=== PATIENT | female | born 1965 | race Caucasian/White ===

== ENCOUNTER 2020-11-07 11:14 | Outpatient (REF) | payer OTHER, SELFPAY ==
[2020-11-07 12:32] LABS: COVID-19 Test Negative (Negative)
== END 2020-11-07 11:15 | disposition home or self-care (01) ==
LOC: HO.EMPCOV 11:14
PROVIDERS: Visit Provider Internal Medicine
DX: Z20.828 Contact with and (suspected) exposure to other viral communicable diseases (principal)
CPT/HCPCS: 36415; 87635; C9803

== ENCOUNTER 2020-12-20 09:52 | Outpatient (REF) | payer OTHER, SELFPAY ==
[2020-12-20 10:17] LABS: COVID-19 Test Negative (Negative); IDNOW Serial# 55D5AD1C
== END 2020-12-20 09:53 | disposition home or self-care (01) ==
LOC: HO.EMPCOV 09:52
PROVIDERS: Visit Provider Internal Medicine
DX: Z20.822 Contact with and (suspected) exposure to COVID-19 (principal)
CPT/HCPCS: 36415; 87635; C9803

== ENCOUNTER 2021-01-04 14:24 | Outpatient (REF) | payer OTHER, SELFPAY ==
--- NOTE | ~2021-01-04 | MM_ITS ---
EXAMINATION: MM SCREENING DIGITAL BREAST TOMOSYNTHESIS, BILATERAL CLINICAL INFORMATION: Screening. Asymptomatic. The lifetime risk of breast cancer based on the Tyrer-Cuzick Model is 8%. COMPARISON: Mammography: 12/23/2019, 12/22/2018, 11/11/2017, 08/27/2016 TECHNIQUE: Digital breast tomosynthesis is performed in both the craniocaudal and mediolateral oblique views along with computer-aided detection (CAD). Synthesized 2D images are generated from the tomosynthesis. FINDINGS: There are scattered areas of fibroglandular density (ACR BI-RADS breast composition Category b). There are scattered bilateral parenchymal asymmetries similar to prior exams. There is some shifting fibroglandular asymmetries from year to year. There is no developing density or interval mass or architectural abnormality. No abnormal calcifications. The axilla and skin contours are unremarkable. MM/MM tomosynthesis screening BI IMPRESSION: No significant changes from prior studies. ASSESSMENT: BI-RADS 2: Benign RECOMMENDATION: Routine annual mammography screening. This patient's information was entered into a reminder system with a target due date for their next mammogram.
== END 2021-01-04 14:25 | disposition home or self-care (01) ==
LOC: HO.MAMMO 14:24
PROVIDERS: PCP Internal Medicine; Visit Provider Internal Medicine
DX: Z12.31 Encounter for screening mammogram for malignant neoplasm of breast (principal)
CPT/HCPCS: 77063; 77067

== ENCOUNTER 2021-03-28 21:21 | Emergency (ER) | payer OTHER, SELFPAY ==
--- NOTE | ~2021-03-28 | US_ITS ---
EXAMINATION: US ABDOMEN LIMITED CLINICAL INFORMATION: Right upper quadrant pain.. COMPARISON: None TECHNIQUE: Real-time imaging of the right upper quadrant abdominal viscera. FINDINGS: PANCREAS: Normal. LIVER: Normal. The liver is normal in size. The liver contour is normal. Parenchymal echogenicity is normal. No focal hepatic lesion. There is no intrahepatic biliary duct dilatation seen. GALLBLADDER: Gallstones are present. The gallbladder wall is at the upper limit of normal for thickness. No wall edema or pericholecystic fluid. The patient does describe tenderness in the area of the gallbladder per the health care facility administrator. COMMON BILE DUCT: Normal in caliber measuring 0.4 cm in diameter. RIGHT KIDNEY: Normal. No hydronephrosis. No renal calculi or focal parenchymal lesions. The kidney measures 11.3 cm in maximum dimension. FREE FLUID: None. US/US abdomen limited IMPRESSION: Cholelithiasis. Sonographic Aguilar's sign. These findings raise concern for cholecystitis, although no inflammatory changes are seen at the gallbladder by ultrasound.
[2021-03-28 21:34] VITALS: BP 159/76; PULSE 74; RESP 16; TEMP 36.8; O2SAT 98; BMI 27.4
--- NOTE | 2021-03-28 23:14 | ED.ABDPAIN ---
HPI - Abdominal Pain General Chief Complaint: Abdominal Pain Stated Complaint: ABD PAIN, NAUSEA Time Seen by Provider: 03/28/21 22:53 Source: patient Mode of arrival: ambulatory Limitations: no limitations History of Present Illness HPI narrative: Patient comes emergency room complaining of epigastric and right upper quadrant pain. Patient states it started around noon time after lunch. Patient has never had this pain before. Patient states it is sharp in the epigastric area and in the right upper quadrant, radiating towards the back. The pain has been constant, very sharp. Patient had multiple episodes of vomiting, no diarrhea. Patient denies fever chills. MD elicited complaint: abdominal pain Related Data Previous Rx's Medication Instructions Recorded ondansetron HCl [Zofran] 4 mg PO Q6H PRN #10 tab 03/29/21 tramadol 50 mg PO TID PRN #7 tab 03/29/21 Allergies Allergy/AdvReac Type Severity Reaction Status Date / Time No Known Allergies Allergy Verified 03/28/21 21:34 Review of Systems Review of Systems Constitutional : No Weight loss, No Fever, No Chills, No Night Sweats, No Fatigue, No Malaise ENT/Mouth : No Hearing loss, No Ear Pain, No Nasal Congestion, No Sinus Pain, No Hoarseness, No sore throat, No Rhinorrhea, No Swallowing Difficulty Eyes: No Eye Pain, No Swelling, No Redness, No Foreign Body, No Discharge, No Vision Changes Cardiovascular : No Chest Pain, No SOB, No Dyspnea on Exertion, No Orthopnea, No Edema, No Palpitations Respiratory : No Cough, No Sputum, No Wheezing, No Smoke Exposure, No Dyspnea Gastrointestinal : Complaining of nausea vomiting No Diarrhea, No Constipation, complaining of epigastric and right upper quadrant pain,, No Hematochezia, No Melena Genitourinary : no irregular bleeding, No Dysuria, No Urinary Frequency, No Hematuria, No Urinary Incontinence, No Urgency, No Flank Pain, No Urinary Flow Changes, No Hesitancy Musculoskeletal : No joint pain, No Myalgias, No Joint Swelling Skin : No Skin Lesions, No rash Neuro : No Weakness, No Numbness, No Paresthesias, No Loss of Consciousness, No Dizziness, No Headache Psych : No Anxiety/Panic, No Depression, No SI/HI/AH/VH, No Social Issues, Heme/Lymph: No Bruising, No Bleeding,No Lymphadenopathy Endocrine : No Polyuria, No Polydipsia, No Temperature Intolerance Physical Exam Vital Signs: Vital Signs: Last Vital Signs Temp 98.2 F 03/29/21 02:29 Pulse 70 03/29/21 02:29 Resp 16 03/29/21 02:29 BP 132/62 03/29/21 02:29 Pulse Ox 98 03/29/21 02:29 Body Mass Index 27.4 Appearance: Alert. Oriented X3. No acute distress. Eyes: Pupils equal, round and reactive to light. ENT: Pharynx normal. Neck: Normal inspection. Neck supple. No lymph nodes noted. No crepitus CVS: Normal heart rate and rhythm. Pulses normal. Normal S1 and S2 Respiratory: No respiratory distress. Breath sounds normal. No Wheezing. No rales Abdomen: Soft, pain to palpation in epigastric area and right upper quadrant, positive Aguilar sign, No rigidity. No distention. Skin: Skin warm and dry. Normal skin color. Normal skin turgor. Extremities: No lower extremity edema. No lower extremity edema. No Lacerations. No Rash Neuro: Oriented X 3. No motor deficit. No sensory deficit. Moving all extermities. No slurred speech. Course Course Course Narrative: At this time, patient has no abdominal pain. The ultrasound shows cholelithiasis, with possible cholecystitis. However, at this time patient has no abdominal pain, LFTs are within normal limits. Patient is asymptomatic. Patient instructed to follow-up with surgery. Patient has not had any episodes of vomiting. On physical exam prior to discharge, patient has no abdominal pain MDM - Abdominal Pain Lab Data Result diagrams: 03/28/21 23:32 03/28/21 23:32 Labs: Lab Results 03/28/21 03/28/21 03/28/21 Range/Units 23:32 23:32 23:32 WBC 7.8 (4.8-10.8) X10*3/uL RBC 4.35 (4.20-5.50) X10*6/uL Hgb 12.6 (12.0-16.0) g/dl Hct 38.3 (37-47) % MCV 88.0 (80-98) fL MCH 29.0 (27.0-33.0) pg MCHC 32.9 (31.0-35.0) g/dl RDW 12.6 (11.0-16.0) % Plt Count 248 (160-400) X10*3/uL MPV 9.8 (9.4-12.3) fL Immature Gran % (Auto) 0.1 (0.0-0.4) % Neut % (Auto) 81.2 H (45-73) % Lymph % (Auto) 12.8 L (20-40) % Mccracken % (Auto) 5.4 (2-11) % Eos % (Auto) 0.1 (0-4) % Baso % (Auto) 0.4 (0-2) % Lymph # (Auto) 1.0 L (1.2-4.9) X10*3/uL Mccracken # (Auto) 0.4 (0.1-1.2) X10*3/uL Eos # (Auto) 0.0 (0.0-0.4) X10*3/uL Baso # (Auto) 0.0 (0.0-0.2) X10*3/uL Abs Immat Gran (auto) 0.01 (0.00-0.03) X10*3/uL Absolute Neuts (auto) 6.4 (2.0-8.3) X10*3/uL Absolute Nucleated RBC 0.000 (0.0-0.012) X10*3/uL Nucleated RBC % (auto) 0.0 (0.0-0.2) /100WBC Sodium 139 (135-145) mmol/L Potassium 3.9 (3.3-5.1) mmol/L Chloride 103 (96-108) mmol/L Carbon Dioxide 26 (22-29) mmol/L Anion Gap 14 (12-20) BUN 13 (9-16) mg/dL Creatinine 0.80 (0.5-1.4) mg/dL Estim Creat Clear Calc 75.7 Estimated GFR > 60 Random Glucose 123 H (60-115) mg/dL Calcium 9.6 (8.4-10.2) mg/dL Total Bilirubin 0.6 (0.0-1.0) mg/dL Direct Bilirubin 0.2 (0.0-0.5) mg/dL AST 20 (5-31) U/L ALT 17 (0-31) U/L Alkaline Phosphatase 77 (39-117) U/L Total Protein 7.6 (6.5-8.0) g/dL Albumin 4.7 (3.5-5.0) g/dL Lipase 39 (8-78) U/L Imaging Data US - abdomen: Radiologist's impression: FINDINGS: PANCREAS: Normal. LIVER: Normal. The liver is normal in size. The liver contour is normal. Parenchymal echogenicity is normal. No focal hepatic lesion. There is no intrahepatic biliary duct dilatation seen. GALLBLADDER: Gallstones are present. The gallbladder wall is at the upper limit of normal for thickness. No wall edema or pericholecystic fluid. The patient does describe tenderness in the area of the gallbladder per the solder making supervisor. COMMON BILE DUCT: Normal in caliber measuring 0.4 cm in diameter. RIGHT KIDNEY: Normal. No hydronephrosis. No renal calculi or focal parenchymal lesions. The kidney measures 11.3 cm in maximum dimension. FREE FLUID: None. US/US abdomen limited IMPRESSION: Cholelithiasis. Sonographic Aguilar's sign. These findings raise concern for cholecystitis, although no inflammatory changes are seen at the gallbladder by ultrasound. Discharge Plan Discharge Clinical Impression: Cholelithiasis Patient Disposition: Home, Self-Care Instructions: Gallstones (ED) Additional Instructions: Please follow-up with your primary care physician tomorrow. If you have any worsening or new symptoms, please return to the emergency room or call 911 Prescriptions: New tramadol 50 mg tablet 50 mg PO TID PRN (Reason: pain) Qty: 7 RF: 0 ondansetron HCl [Zofran] 4 mg tablet 4 mg PO Q6H PRN (Reason: nausea and vomiting) Qty: 10 RF: 0 Referrals: Ricardo Darden MD [Physician] - 2 days [facility] [place] Past Medical History Medical History Anxiety Social History Social History Alcohol intake: never Patient Tobacco Use Status: Tobacco use Unknown Use of substances other than those prescribed or required for medical reasons: No Advance Directives: No Advance Directives Information Provided: No
--- NOTE | 2021-03-28 23:15 | ECG_ITS ---
Test Reason : ABD PAIN Blood Pressure : / mmHG Vent. Rate : 074 BPM Atrial Rate : 074 BPM P-R Int : 152 ms QRS Dur : 082 ms QT Int : 362 ms P-R-T Axes : 067 024 021 degrees QTc Int : 401 ms Normal sinus rhythm with sinus arrhythmia Possible Left atrial enlargement Nonspecific ST abnormality Abnormal ECG No previous ECGs available Referred By: Martha Robbins Electronically Signed By:ROEL RUBY
[2021-03-28 23:38] LABS: Basophils Percent Auto 0.4 % (0-2); Eosinophils Percent Auto 0.1 % (0-4); Hematocrit 38.3 % (37-47); Hemoglobin 12.6 g/dl (12.0-16.0); Imm Gran Abs Auto 0.01 X10*3/uL (0.00-0.03); Imm Gran Pct Auto 0.1 % (0.0-0.4); Lymphocytes Percent Auto 12.8 % (20-40); MANUAL DIFF FLAG NO; Mean Corpuscular HGB Conc 32.9 g/dl (31.0-35.0); Mean Platelet Volume 9.8 fL (9.4-12.3); Monocytes Absolute Auto 0.4 X10*3/uL (0.1-1.2); Monocytes Percent Auto 5.4 % (2-11); Neutrophils Absolute Auto 6.4 X10*3/uL (2.0-8.3); Neutrophils Percent Auto 81.2 % (45-73); Platelet Count 248 X10*3/uL (160-400); Red Blood Count 4.35 X10*6/uL (4.20-5.50); Red Cell Distribution Width 12.6 % (11.0-16.0); White Blood Count 7.8 X10*3/uL (4.8-10.8)
[2021-03-28] MEDS: 0.9 % Sodium Chloride 1,000 ML 999 ML IVCONT (23:41)
[2021-03-28] MEDS: ondansetron HCL 4 MG/2 ML VIAL IVPUSH (23:42)
[2021-03-28] MEDS: Morphine Sulfate 4 MG/ML CARTRIDGE IVPUSH (23:42)
[2021-03-28 23:45] VITALS: BP 144/69; PULSE 68; RESP 16; O2SAT 97
[2021-03-29 00:05] LABS: Anion Gap 14 (12-20); Blood Urea Nitrogen 13 mg/dL (9-16); Calcium 9.6 mg/dL (8.4-10.2); Carbon Dioxide 26 mmol/L (22-29); Chloride 103 mmol/L (96-108); Creatinine Clr Calc Pharmacy 75.7; Estimated Glomerular Filt Rate > 60; Glucose Random 123 mg/dL (60-115); Potassium 3.9 mmol/L (3.3-5.1); Sodium 139 mmol/L (135-145)
[2021-03-29 00:08] LABS: Alanine Aminotransferase 17 U/L (0-31); Albumin Level 4.7 g/dL (3.5-5.0); Alkaline Phosphatase 77 U/L (39-117); Aspartate Amino Transferase 20 U/L (5-31); Bilirubin Direct 0.2 mg/dL (0.0-0.5); Bilirubin Total 0.6 mg/dL (0.0-1.0); Lipase 39 U/L (8-78); Total Protein 7.6 g/dL (6.5-8.0)
[2021-03-29 02:29] VITALS: BP 132/62; PULSE 70; RESP 16; TEMP 36.8; O2SAT 98
== END 2021-03-29 03:45 | disposition home or self-care (01) ==
PROVIDERS: Emergency Provider Emergency Medicine; PCP Internal Medicine
DX: K80.20 Calculus of gallbladder without cholecystitis without obstruction (principal); R10.13 Epigastric pain; R10.11 Right upper quadrant pain; Z79.899 Other long term (current) drug therapy
CPT/HCPCS: 36415; 76705; 80048; 80076; 83690; 85025; 93005; 96365; 96375; 99284; J2270; J2405

== ENCOUNTER → 2021-04-04 13:36 | Outpatient (BNVA) | payer OTHER, SELFPAY | PROVIDERS: PCP Internal Medicine; Referring Provider Internal Medicine; Visit Provider Surgery ==

== ENCOUNTER 2021-06-24 06:08 | Day surgery (SDC) | payer OTHER, SELFPAY ==
--- NOTE | 2021-06-21 09:09 | HO.ANESPROP2 ---
Documented by User: Jessi Tinoco NP 06/21/21 09:10 HPI - Anesthesia Eval Consult details Narrative: 56yo F for Cholecystectomy Laparoscopic, Poss open PMFSH Active Problems Active Problems: All Active Problems (Updated 06/17/21 @ 11:19 by Sia Rodrigues RN) Symptomatic cholelithiasis (Acute) Past Medical History Medical History Acid reflux Anxiety Depression Surgical History Surgical History History of endometrial ablation History of esophagogastroduodenoscopy Hx of colonoscopy Hx of dilation and curettage Social History Social History Alcohol intake: never Patient Tobacco Use Status: Never used Tobacco Use of substances other than those prescribed or required for medical reasons: No Have you been hit, kicked, punched, or otherwise hurt by someone within the past year? If so, by whom?: No Are you DNR?: No Advance Directives: No Advance Directives Information Provided: No Meds Allergies Allergy/AdvReac Type Severity Reaction Status Date / Time No Known Allergies Allergy Verified 06/24/21 06:20 Home Medications Medication Instructions Recorded Confirmed Last Taken Type buspirone 7.5 mg tablet 1 tab PO BEDTIME 06/17/21 06/24/21 06/24/21 History mirtazapine 15 mg tablet 1 tab PO BEDTIME 06/17/21 06/17/21 Unknown History Exam Exam Date and Time: June 21, 2021 0909 Pertinent Lab Results Pertinent Lab Results: Laboratory Tests 03/28/21 03/28/21 23:32 23:32 WBC 7.8 Hgb 12.6 Hct 38.3 Plt Count 248 Sodium 139 Potassium 3.9 Chloride 103 Carbon Dioxide 26 BUN 13 Creatinine 0.80 Narrative Narrative: EKG 03/2021 Vent. Rate : 074 BPM ? ? Atrial Rate : 074 BPM ?? P-R Int : 152 ms? QRS Dur : 082 ms ? ? QT Int : 362 ms ? ? ? P-R-T Axes : 067 024 021 degrees ?? QTc Int : 401 ms ? Normal sinus rhythm with sinus arrhythmia Possible Left atrial enlargement Nonspecific ST abnormality Abnormal ECG No previous ECGs available ? Assessment and Plan Assessment Anesthesia Assessment: Chart Reviewed Documented by User: Tanika Concepcion MD 06/24/21 08:08 [facility] Past Medical History Medical History Acid reflux Anxiety Depression Family History Family history of problems with anesthesia: No Surgical History Surgical History History of endometrial ablation History of esophagogastroduodenoscopy Hx of colonoscopy Hx of dilation and curettage History of Problems with Anesthesia: No Social History Social History Alcohol intake: never Patient Tobacco Use Status: Never used Tobacco Use of substances other than those prescribed or required for medical reasons: No Have you been hit, kicked, punched, or otherwise hurt by someone within the past year? If so, by whom?: No Are you DNR?: No Advance Directives: No Advance Directives Information Provided: No Meds Allergies Allergy/AdvReac Type Severity Reaction Status Date / Time No Known Allergies Allergy Verified 06/24/21 06:20 Home Medications Medication Instructions Recorded Confirmed Last Taken Type buspirone 7.5 mg tablet 1 tab PO BEDTIME 06/17/21 06/24/21 06/24/21 History mirtazapine 15 mg tablet 1 tab PO BEDTIME 06/17/21 06/17/21 Unknown History Exam Height,Weight and Vital Signs: Height 5 ft 4 in Weight 72.575 kg Vital Signs Temp Pulse Resp BP Pulse Ox 06/24/21 06:15 97.9 F 75 18 137/68 100 Airway Mallampati Class: III TM Dist: >3cm Neck ROM: Full Heart: RRR Lungs: CTAB Assessment and Plan Assessment Anesthesia Assessment: Anesthesia Plan Discussed Final Anesthetic Review Family History of Problems with Anesthesia: No History of Problems with Anesthesia: No NPO: Yes ASA Class: II Final Preanesthetic Review: No Changes in Pt Med Stat, Meds/Allgs Chart Reviewed, Consent Obtained/Reviewed and Anes Risks/Benef Reviewed Patient Risk: Low Procedure Risk: Low Assessment/Block/Sedation in SS: Assess/Block/Sedation-SS Anesthetic Plan Anesthetic Plan: GA Disposition: Standard PACU
[2021-06-24] VITALS (12 sets, daily range): BP systolic 127–162; BP diastolic 61–83; PULSE 56–79; RESP 16–18; TEMP 36.4–36.6; O2SAT 95–100; BMI 27.4
[2021-06-24] MEDS: Lactated Ringers 1,000 ML 100 ML IVCONT (06:39)
--- NOTE | 2021-06-24 08:32 | W.PM.OPN ---
Operative Note Operative Note Date of Service: 06/24/21 Narrative: Preoperative diagnosis: Symptomatic cholelithiasis Postoperative diagnosis: Same Procedure: Laparoscopic cholecystectomy Surgeon: Ricardo Darden MD Director Software Quality Assurance: ADALBERTO James Anesthesia: General endotracheal Indications for procedure:56 year old female with several episodes of abdominal pain in the right upper quadrant found to have gallstones in the gallbladder suggestive of symptomatic cholelithiasis. Operative findings: chronic changes consistent with chronic cholecystitis Specimen:gallbladder Estimated blood loss:2 mls Complications: none Procedure details: Patient was brought to the OR and placed in a supine position. After administering general anesthesia the patient's abdomen was prepped with ChloraPrep and draped in a sterile fashion. Local anesthesia consisting of 0.25% Sensorcaine with epinephrine was infiltrated in a periumbilical region. A 5 mm incision was made above the umbilicus in a transverse fashion. The Veress needle was then inserted while elevating abdominal cavity with towel clips. After positive drop test the abdomen was insufflated to a pressure of 15 mm of mercury. The Veress needle was then removed and a 5 mm trocar inserted. The camera was inserted in the abdomen explored. A 12 mm trocar was then placed in the epigastrium and two 5 mm trocars placed in the right upper quadrant. The patient was placed in reverse Trendelenburg positioning and rotated to the left. The gallbladder was grasped with the fundus and retracted cephalad. The infundibulum was then grasped and retracted away from the liver bed. The Dolphin dissected was then used to dissect the peritoneum off the infundibulum to reveal the junction with the cystic duct. Cystic artery was noted slightly medial and posterior to the cystic duct. After obtaining a critical view the cystic duct was doubly clipped and divided. The cystic artery was then doubly clipped and divided. The gallbladder was then dissected off the liver bed using electrocautery with an L hook. Hemostasis was assured all times using the electrocautery. When the gallbladder is completely dissected off the liver bed was placed in an Endo-Catch bag and brought out through the epigastric incision. The gallbladder was sent to pathology for further examination. The abdomen was then re-examined. The liver bed was irrigated and suctioned dry. No bleeding or bile leak could be identified. CO2 was then evacuated and all trocars removed. Fascia was closed at the epigastric incision using a [id number] 0 Polysorb suture. Skin was closed in all incisions using a subcuticular 4 0 Polysorb suture. Sterile dressings consisting of Steri-Strips, 2 x 2 gauze, and Tegaderm were then applied. The patient tolerated the procedure well. Sponge instrument and needle counts reported as correct. The patient was transferred to PACU in stable condition.
--- NOTE | 2021-06-24 08:36 | MHC.SHP ---
Pre-Procedural Eval Section A Date of Service: 06/24/21 The patient is an INPATIENT: No Changes since office visit: Yes Patient answered all questions; No Cold of Flu in the past 2 weeks, No New Medical Problems and No Changes in Medication The History & Physical has been completed within 30 days and I have reviewed it.: Yes Section B Chief Complaint: calculus of gallbladder Allergies: Allergies Allergy/AdvReac Type Severity Reaction Status Date / Time No Known Allergies Allergy Verified 06/24/21 06:20 Plan Diagnosis/Plan: Unchanged I have reviewed the history and physical and performed a pertinent physical examination on my patient. No changes have occurred unless specified.
[2021-06-24] MEDS: oxyCODONE HCl Immed Release 5 MG TABLET PO (09:09)
[2021-06-24] MEDS: Ketorolac Tromethamine 15 MG/ML VIAL IVPUSH (09:09)
[2021-06-24] MEDS: fentaNYL citrate/PF 100 MCG/2 ML VIAL 50 MCG IVPUSH (09:10)
== END 2021-06-24 11:04 | disposition home or self-care (01) ==
PROVIDERS: PCP Internal Medicine; Visit Provider Surgery
PROC: 0FT44ZZ Resection of Gallbladder, Percutaneous Endoscopic Approach (ICD-10-PCS; CPT 47562; principal; 2021-06-24 07:30)
DX: K80.10 Calculus of gallbladder with chronic cholecystitis without obstruction (principal); K21.9 Gastro-esophageal reflux disease without esophagitis; F32.9 Major depressive disorder, single episode, unspecified; Z79.899 Other long term (current) drug therapy
CPT/HCPCS: 47562; 88304; J0131; J1100; J1885; J2250; J2405; J3010

== ENCOUNTER → 2021-07-02 13:47 | Outpatient (BNVA) | payer OTHER, SELFPAY | PROVIDERS: PCP Internal Medicine; Referring Provider Internal Medicine; Visit Provider Surgery ==

== ENCOUNTER 2021-10-11 05:58 | Outpatient (REF) | payer OTHER, SELFPAY ==
[2021-10-11 06:04] LABS: MANUAL DIFF FLAG NO
[2021-10-11 08:33] LABS: Basophils Percent Auto 0.7 % (0-2); Eosinophils Absolute Auto 0.1 X10*3/uL (0.0-0.4); Eosinophils Percent Auto 2.7 % (0-4); Hematocrit 40.9 % (37.0-47.0); Hemoglobin 13.3 g/dl (12.0-16.0); Imm Gran Abs Auto 0.01 X10*3/uL (0.00-0.03); Imm Gran Pct Auto 0.2 % (0.0-0.4); Lymphocytes Absolute Auto 1.8 X10*3/uL (1.2-4.9); Lymphocytes Percent Auto 40.5 % (20-40); Mean Corpuscular HGB Conc 32.5 g/dl (31.0-35.0); Mean Corpuscular Volume 89.3 fL (80.0-98.0); Mean Platelet Volume 10.8 fL (9.4-12.3); Monocytes Absolute Auto 0.5 X10*3/uL (0.1-1.2); Monocytes Percent Auto 10.6 % (2-11); Neutrophils Percent Auto 45.3 % (45-73); Platelet Count 318 X10*3/uL (160-400); Red Blood Count 4.58 X10*6/uL (4.20-5.50); Red Cell Distribution Width 12.7 % (11.0-16.0); White Blood Count 4.4 X10*3/uL (4.8-10.8)
[2021-10-11 09:16] LABS: Alanine Aminotransferase 14 U/L (0-31); Albumin Level 4.4 g/dL (3.5-5.0); Alkaline Phosphatase 77 U/L (39-117); Anion Gap 13 (12-20); Aspartate Amino Transferase 17 U/L (5-31); Bilirubin Total 0.6 mg/dL (0.0-1.0); Blood Urea Nitrogen 19 mg/dL (9-16); Calcium 9.8 mg/dL (8.4-10.2); Carbon Dioxide 28 mmol/L (22-29); Chloride 107 mmol/L (96-108); Cholesterol 198 mg/dL; Estimated Glomerular Filt Rate 60; Glucose Random 87 mg/dL (60-115); HDL Cholesterol 50 mg/dL; LDL Cholesterol Calculated 132 mg/dl; Sodium 143 mmol/L (135-145); Total Protein 7.4 g/dL (6.5-8.0); Triglycerides 82 mg/dL
[2021-10-11 09:22] LABS: Free T4 (Free Thyroxine) 0.81 ng/dL (0.71-1.85); Thyroid Stimulating Hormone 2.54 uIU/mL (0.32-4.0); Vitamin D 25-OH Total 38.1 ng/mL (>30)
== END 2021-10-11 05:59 | disposition home or self-care (01) ==
LOC: HO.LAB 05:58
PROVIDERS: PCP Internal Medicine; Visit Provider Internal Medicine
DX: M19.041 Primary osteoarthritis, right hand (principal); M19.042 Primary osteoarthritis, left hand; E78.00 Pure hypercholesterolemia, unspecified; R53.83 Other fatigue; R53.81 Other malaise; E55.9 Vitamin D deficiency, unspecified
CPT/HCPCS: 36415; 80053; 80061; 82306; 84439; 84443; 85025

== ENCOUNTER 2022-07-01 14:23 | Outpatient (REF) | payer OTHER, SELFPAY ==
--- NOTE | ~2022-07-01 | MM_ITS ---
EXAMINATION: MM SCREENING DIGITAL BREAST TOMOSYNTHESIS, BILATERAL CLINICAL INFORMATION: Screening. Asymptomatic. The lifetime risk of breast cancer based on the Tyrer-Cuzick Model is 6.0%. COMPARISON: Mammography: January 04, 2021 and studies dating back to May 15, 2014 TECHNIQUE: Digital breast tomosynthesis is performed in both the craniocaudal and mediolateral oblique views along with computer-aided detection (CAD). Synthesized 2D images are generated from the tomosynthesis. FINDINGS: The breasts are heterogeneously dense, which may obscure small masses (ACR BI-RADS breast composition Category c). There are no significant masses, abnormal calcifications, or other abnormalities. MM/MM tomosynthesis screening BI IMPRESSION: No significant changes from prior exam. ASSESSMENT: BI-RADS 1: Negative RECOMMENDATION: Routine annual mammography screening. This patient's information was entered into a reminder system with a target due date for their next mammogram.
== END 2022-07-01 14:24 | disposition home or self-care (01) ==
LOC: HO.MAMMO 14:23
PROVIDERS: Visit Provider Internal Medicine
DX: Z12.31 Encounter for screening mammogram for malignant neoplasm of breast (principal)
CPT/HCPCS: 77063; 77067

== ENCOUNTER 2022-10-10 05:58 | Outpatient (REF) | payer OTHER, SELFPAY ==
[2022-10-10 06:02] LABS: MANUAL DIFF FLAG NO
[2022-10-10 07:25] LABS: Basophils Percent Auto 0.8 % (0-2); Eosinophils Absolute Auto 0.2 X10*3/uL (0.0-0.4); Eosinophils Percent Auto 3.1 % (0-4); Hematocrit 41.8 % (37.0-47.0); Hemoglobin 13.4 g/dl (12.0-16.0); Imm Gran Abs Auto 0.01 X10*3/uL (0.00-0.03); Imm Gran Pct Auto 0.2 % (0.0-0.4); Lymphocytes Percent Auto 41.6 % (20-40); Mean Corpuscular HGB Conc 32.1 g/dl (31.0-35.0); Mean Corpuscular Hemoglobin 28.7 pg (27.0-33.0); Mean Corpuscular Volume 89.5 fL (80.0-98.0); Mean Platelet Volume 10.6 fL (9.4-12.3); Monocytes Absolute Auto 0.6 X10*3/uL (0.1-1.2); Monocytes Percent Auto 11.8 % (2-11); Neutrophils Absolute Auto 2.1 x10*3/uL (2.0-8.3); Neutrophils Percent Auto 42.5 % (45-73); Platelet Count 280 X10*3/uL (160-400); Red Blood Count 4.67 X10*6/uL (4.20-5.50); Red Cell Distribution Width 12.9 % (11.0-16.0); White Blood Count 4.9 X10*3/uL (4.8-10.8)
[2022-10-10 08:22] LABS: Alanine Aminotransferase 12 U/L (0-31); Albumin Level 4.6 g/dL (3.5-5.0); Alkaline Phosphatase 73 U/L (39-117); Anion Gap 12 (12-20); Aspartate Amino Transferase 17 U/L (5-31); Bilirubin Total 1.2 mg/dL (0.0-1.0); Blood Urea Nitrogen 18 mg/dL (9-16); Calcium 9.7 mg/dL (8.4-10.2); Carbon Dioxide 28 mmol/L (22-29); Chloride 106 mmol/L (96-108); Cholesterol 211 mg/dL; Estimated Glomerular Filt Rate > 60; Glucose Random 85 mg/dL (60-115); HDL Cholesterol 48 mg/dL; LDL Cholesterol Calculated 142 mg/dl; Potassium 4.5 mmol/L (3.3-5.1); Sodium 141 mmol/L (135-145); Thyroid Stimulating Hormone 4.67 uIU/mL (0.32-4.0); Total Protein 7.3 g/dL (6.5-8.0); Triglycerides 109 mg/dL
== END 2022-10-10 05:59 | disposition home or self-care (01) ==
LOC: HO.LAB 05:58
PROVIDERS: Visit Provider Internal Medicine
DX: F41.9 Anxiety disorder, unspecified (principal); E78.00 Pure hypercholesterolemia, unspecified
CPT/HCPCS: 36415; 80053; 80061; 84443; 85025

== ENCOUNTER 2022-11-04 14:24 | Outpatient (REF) | payer OTHER, SELFPAY | END 2022-11-04 14:25 | disposition home or self-care (01) | LOC: HO.LNP 14:24 | PROVIDERS: PCP Internal Medicine; Visit Provider Surgery | DX: L98.9 Disorder of the skin and subcutaneous tissue, unspecified (principal); L91.8 Other hypertrophic disorders of the skin | CPT/HCPCS: 11400; 11401; 88304; 88305 ==

== ENCOUNTER → 2022-11-13 14:22 | Outpatient (BNVA) | payer OTHER, SELFPAY | PROVIDERS: PCP Internal Medicine; Visit Provider Surgery | DX: Z13.89 Encounter for screening for other disorder (principal) ==

== ENCOUNTER 2023-01-13 14:34 | Outpatient (REF) | payer OTHER, SELFPAY | END 2023-01-13 14:35 | disposition home or self-care (01) | LOC: HO.LNP 14:34 | PROVIDERS: PCP Internal Medicine; Visit Provider Obstetrics & Gynecology | DX: Z01.419 Encounter for gynecological examination (general) (routine) without abnormal findings (principal) | CPT/HCPCS: 88142 ==

== ENCOUNTER 2023-07-07 14:11 | Outpatient (REF) | payer OTHER, SELFPAY ==
--- NOTE | ~2023-07-07 | MM_ITS ---
EXAMINATION: MM SCREENING DIGITAL BREAST TOMOSYNTHESIS, BILATERAL CLINICAL INFORMATION: Screening. Asymptomatic. COMPARISON: Mammography: 07/01/2022, 12/23/2019, 12/22/2018, 11/11/2017, 08/27/2016 TECHNIQUE: Digital breast tomosynthesis is performed in both the craniocaudal and mediolateral oblique views along with computer-aided detection (CAD). Synthesized 2D images are generated from the tomosynthesis. FINDINGS: The breasts are heterogeneously dense, which may obscure small masses (ACR BI-RADS breast composition Category c). There are no suspicious masses, suspicious grouped calcifications, or areas of architectural distortion. The parenchymal pattern is again noted to be somewhat complex although stable from prior exams, with numerous stable asymmetries. There are no skin changes. MM/MM tomosynthesis screening BI IMPRESSION: No mammographic evidence of malignancy. ASSESSMENT: BI-RADS BI-RADS 1 - Negative RECOMMENDATION: Routine annual mammography screening. 1 year F/U This examination should not preclude the clinical evaluation of a suspicious palpable abnormality. This patient's information was entered into a reminder system with a target due date for their next mammogram.
== END 2023-07-07 14:12 | disposition home or self-care (01) ==
LOC: HO.MAMMO 14:11
PROVIDERS: PCP Internal Medicine; Visit Provider Internal Medicine
DX: Z12.31 Encounter for screening mammogram for malignant neoplasm of breast (principal)
CPT/HCPCS: 77063; 77067

== ENCOUNTER → 2023-07-07 14:30 | Outpatient (BNV) | payer OTHER, SELFPAY | PROVIDERS: PCP Internal Medicine; Visit Provider Radiology Diagnostic Radiology | DX: Z12.31 Encounter for screening mammogram for malignant neoplasm of breast (principal) | CPT/HCPCS: 77063; 77067 ==

== ENCOUNTER 2023-08-01 07:42 | Outpatient (REF) | payer OTHER, SELFPAY ==
[2023-08-01 08:00] LABS: MANUAL DIFF FLAG NO
[2023-08-01 08:13] LABS: Basophils Percent Auto 0.7 % (0-2); Eosinophils Absolute Auto 0.2 X10*3/uL (0.0-0.4); Eosinophils Percent Auto 3.7 % (0-4); Hematocrit 40.2 % (37.0-47.0); Hemoglobin 13.5 g/dl (12.0-16.0); Imm Gran Abs Auto 0.01 X10*3/uL (0.00-0.03); Imm Gran Pct Auto 0.2 % (0.0-0.4); Lymphocytes Absolute Auto 1.9 X10*3/uL (1.2-4.9); Mean Corpuscular HGB Conc 33.6 g/dl (31.0-35.0); Mean Corpuscular Hemoglobin 29.3 pg (27.0-33.0); Mean Corpuscular Volume 87.2 fL (80.0-98.0); Mean Platelet Volume 9.7 fL (9.4-12.3); Monocytes Absolute Auto 0.5 X10*3/uL (0.1-1.2); Neutrophils Absolute Auto 1.8 x10*3/uL (2.0-8.3); Neutrophils Percent Auto 41.4 % (45-73); Platelet Count 238 X10*3/uL (160-400); Red Blood Count 4.61 X10*6/uL (4.20-5.50); Red Cell Distribution Width 12.7 % (11.0-16.0); White Blood Count 4.4 X10*3/uL (4.8-10.8)
[2023-08-01 09:06] LABS: Alanine Aminotransferase 15 U/L (0-31); Albumin Level 4.4 g/dL (3.5-5.0); Alkaline Phosphatase 66 U/L (39-117); Anion Gap 16 (12-20); Aspartate Amino Transferase 20 U/L (5-31); Bilirubin Total 1.2 mg/dL (0.0-1.0); Blood Urea Nitrogen 15 mg/dL (9-16); Calcium 9.8 mg/dL (8.4-10.2); Carbon Dioxide 24 mmol/L (22-29); Chloride 108 mmol/L (96-108); Cholesterol 197 mg/dL (<200); Estimated Glomerular Filt Rate > 60; Glucose Random 89 mg/dL (60-115); HDL Cholesterol 50 mg/dL (>40); LDL Cholesterol Calculated 130 mg/dL (<100); Potassium 4.2 mmol/L (3.3-5.1); Sodium 144 mmol/L (135-145); Total Protein 7.2 g/dL (6.5-8.0); Triglycerides 88 mg/dL (<150)
[2023-08-01 09:29] LABS: Free T4 (Free Thyroxine) 0.78 ng/dL (0.71-1.85); Thyroid Stimulating Hormone 2.54 uIU/mL (0.32-4.0)
== END 2023-08-01 07:43 | disposition home or self-care (01) ==
LOC: HO.LAB 07:42
PROVIDERS: Visit Provider Internal Medicine
DX: Z01.84 Encounter for antibody response examination (principal); E03.9 Hypothyroidism, unspecified; E78.00 Pure hypercholesterolemia, unspecified
CPT/HCPCS: 36415; 80053; 80061; 84439; 84443; 85025; 86787

== ENCOUNTER 2024-02-01 15:01 | Outpatient (REF) | payer OTHER, SELFPAY ==
[2024-02-09 04:18] LABS: HPV mRNA E6/E7 rflx Not Detected (Not Detected)
== END 2024-02-01 15:02 | disposition home or self-care (01) ==
LOC: HO.LNP 15:01
PROVIDERS: Visit Provider Obstetrics & Gynecology
DX: Z01.419 Encounter for gynecological examination (general) (routine) without abnormal findings (principal); Z11.51 Encounter for screening for human papillomavirus (HPV)
CPT/HCPCS: 87624; 88142

== ENCOUNTER 2024-02-01 15:01 | Outpatient (AMB) | payer OTHER, SELFPAY ==
[2024-02-01 15:30] VITALS: BP 110/62; BMI 27.5
--- NOTE | 2024-02-01 15:30 | A.OFFVIS_ITS ---
Intake Vital Signs 02/01/24 15:30 Height 5 ft 4 in Weight 160 lb BMI 27.5 BP 110/62 Intake Visit Reasons: Annual Allergies No Known Allergies Allergy (Verified 01/13/23 14:44) Post menopausal: Yes HPI HPI Comments History of Present Illness Details Presenting for annual exam. No complaints. Last Pap was negative in 01/22, no HPV done Last Mammogram was BI-RADS 1 in 07/25 Last Colonoscopy was in 10/20, the recommendation was to repeat in 5 years [facility] Medical History Acid reflux Depression Anxiety Surgical History History of cholecystectomy History of local excision of skin lesion (11/04/22) History of esophagogastroduodenoscopy History of endometrial ablation Hx of dilation and curettage Hx of colonoscopy Social History Household Members: Spouse Housing: House Alcohol intake: never Patient Tobacco Use Status: Never used Tobacco Current occupational status: employed Current occupation: Food services at [employer] Sexually active: Yes Sexual orientation: Straight/Heterosexual Gender identity: Female Female Reproductive History Menstrual Age of Menarche: 13 Total pregnancies: 3 Full term: 2 Number of Living Children: 2 Date of last pap smear: 01/13/23 Date of Mammogram: 07/07/23 Review of Systems Const All systems reviewed & are unremarkable except as noted in HPI and below Card Reports as per HPI Resp Reports as per HPI GI Reports as per HPI and Reports no additional complaints Reports as per HPI Physical Exam Vital Signs: Last Vital Signs BP 110/62 02/01/24 15:30 BMI result Body Mass Index 27.5 Const General: cooperative, healthy appearing and comfortable Chest Chest palpation & inspection: normal inspection of the chest and normal palpation of entire chest wall Breast/axilla inspection: normal inspection of the breasts and normal inspection of the axillae Breast/axilla palpation: normal palpation of the breasts, normal palpation of the axillae and no axillary lymphadenopathy Resp Effort & Inspection: normal respiratory effort Auscultation: clear to auscultation bilaterally Percussion: percussion normal Cardio Palpation: normal PMI Rate: regular rate Rhythm: regular rhythm Heart sounds: no murmurs and no rubs Peripheral pulses: Peripheral pulses 2+ throughout GI Inspection: Yes normal to inspection Palpation (GI): Soft to palpation, nontender, no guarding, not rigid and No hepatosplenomegaly present Percussion: Yes normal to percussion Auscultation: normal bowel sounds Rectal Exam - Female: deferred General: Yes bladder normal to palpation External Female Exam: No lesion Speculum Exam - Vagina: normal appearance of the vagina, normal palpation, normal vaginal discharge and not erythematous Speculum Exam - Cervix: normal appearance of the cervix and normal palpation Bimanual exam- vagina & uterus: normal bimanual exam, normal palpation, uterine size normal, bladder normal to palpation, consistency normal and normal palpation Bimanual Exam- Adnexa, other: normal adnexae, no masses and no tenderness Assessment & Plan Assessment & Plan (1) Well woman exam: Code(s): Z01.419 - Encounter for gynecological examination (general) (routine) without abnormal findings Plan: Co testing done. Counseled the patient about the recommended dietary allowance of 1200 mg of Calcium & 600 IU of vitamin D. Instructions given the patient to schedule next screening mammogram in 07/26. Informed the patient that she is due for next screening screening colonoscopy in 10/25, the patient stated that she will schedule her colonoscopy with her GI the coming few months . The patient was instructed to perform monthly self-breast exams and schedule annual exam in a year. All questions answered and the patient verbalized understanding. Coding Level of Care Code Est Pt Prev Care 40-64y(21405) Diagnoses Well woman exam Z01.419
== END 2024-02-01 15:56 | disposition home or self-care (01) ==
PROVIDERS: PCP Internal Medicine; Visit Provider Obstetrics & Gynecology
DX: Z01.419 Encounter for gynecological examination (general) (routine) without abnormal findings (principal)
CPT/HCPCS: 99396

== ENCOUNTER 2024-07-08 14:10 | Outpatient (REF) | payer OTHER, SELFPAY ==
--- NOTE | ~2024-07-08 | MM_ITS ---
EXAMINATION: MM SCREENING DIGITAL BREAST TOMOSYNTHESIS, BILATERAL CLINICAL INFORMATION: Screening. Asymptomatic. COMPARISON: Mammography: Comparison is made with available priors TECHNIQUE: Digital breast mammography with tomosynthesis is performed in both the craniocaudal and mediolateral oblique views along with computer-aided detection (CAD). FINDINGS: The breasts are heterogeneously dense, which may obscure small masses (ACR BI-RADS breast composition Category c). There are no significant masses, abnormal calcifications, or other abnormalities. MM/MM tomosynthesis screening BI IMPRESSION: No mammographic evidence of malignancy. ASSESSMENT: BI-RADS BI-RADS 1 - Negative RECOMMENDATION: Routine annual mammography screening. 1 year F/U This examination should not preclude the clinical evaluation of a suspicious palpable abnormality. This patient's information was entered into a reminder system with a target due date for their next mammogram. Electronically signed by: Blank Lyles DO 07/24/2024 06:49 PM EDT
== END 2024-07-08 14:11 | disposition home or self-care (01) ==
LOC: HO.MAMMO 14:10
PROVIDERS: PCP Internal Medicine; Visit Provider Internal Medicine
DX: Z12.31 Encounter for screening mammogram for malignant neoplasm of breast (principal)
CPT/HCPCS: 77063; 77067

== ENCOUNTER → 2024-07-08 14:15 | Outpatient (BNV) | payer OTHER, SELFPAY | PROVIDERS: PCP Internal Medicine; Visit Provider Internal Medicine | DX: Z12.31 Encounter for screening mammogram for malignant neoplasm of breast (principal) | CPT/HCPCS: 77063; 77067 ==

== ENCOUNTER 2024-08-27 07:43 | Outpatient (REF) | payer OTHER, SELFPAY ==
[2024-08-27 08:10] LABS: MANUAL DIFF FLAG NO
[2024-08-27 08:41] LABS: Basophils Percent Auto 0.7 % (0-2); Eosinophils Absolute Auto 0.1 X10*3/uL (0.0-0.4); Eosinophils Percent Auto 2.8 % (0-4); Hematocrit 40.8 % (37.0-47.0); Hemoglobin 13.7 g/dl (12.0-16.0); Imm Gran Abs Auto 0.01 X10*3/uL (0.00-0.03); Imm Gran Pct Auto 0.2 % (0.0-0.4); Lymphocytes Absolute Auto 1.7 X10*3/uL (1.2-4.9); Lymphocytes Percent Auto 39.9 % (20-40); Mean Corpuscular HGB Conc 33.6 g/dl (31.0-35.0); Mean Corpuscular Hemoglobin 29.3 pg (27.0-33.0); Mean Corpuscular Volume 87.4 fL (80.0-98.0); Monocytes Absolute Auto 0.5 X10*3/uL (0.1-1.2); Monocytes Percent Auto 11.9 % (2-11); Neutrophils Absolute Auto 1.9 x10*3/uL (2.0-8.3); Neutrophils Percent Auto 44.5 % (45-73); Platelet Count 264 X10*3/uL (160-400); Red Blood Count 4.67 X10*6/uL (4.20-5.50); Red Cell Distribution Width 12.7 % (11.0-16.0); White Blood Count 4.4 X10*3/uL (4.8-10.8)
[2024-08-27 08:54] LABS: Estimated Average Glucose 114 mg/dL; Hemoglobin A1C 128.7019 umol/L; Hemoglobin A1c % 5.6 % (<6.0); Total Hemoglobin (HGBA1C) 3396.9132 umol/L
[2024-08-27 09:19] LABS: Alanine Aminotransferase 21 U/L (0-31); Albumin Level 4.4 g/dL (3.5-5.0); Alkaline Phosphatase 68 U/L (39-117); Anion Gap 10 (12-20); Aspartate Amino Transferase 24 U/L (5-31); Bilirubin Total 0.9 mg/dL (0.0-1.0); Blood Urea Nitrogen 14 mg/dL (9-16); Calcium 9.8 mg/dL (8.4-10.2); Carbon Dioxide 27 mmol/L (22-29); Chloride 107 mmol/L (96-108); Cholesterol 199 mg/dL (<200); Estimated Glomerular Filt Rate > 60; Glucose Random 97 mg/dL (60-115); HDL Cholesterol 50 mg/dL (>40); LDL Cholesterol Calculated 122 mg/dL (<100); Potassium 4.4 mmol/L (3.3-5.1); Sodium 140 mmol/L (135-145); Total Protein 7.5 g/dL (6.5-8.0); Triglycerides 139 mg/dL (<150)
[2024-08-27 09:37] LABS: TSH reflex Free T4 3.34 uIU/mL (0.32-4.0); Vitamin D 25-OH Total 46.1 ng/mL (>30)
== END 2024-08-27 07:44 | disposition home or self-care (01) ==
LOC: HO.LAB 07:43
PROVIDERS: PCP Internal Medicine; Visit Provider Internal Medicine
DX: R53.83 Other fatigue (principal); E78.00 Pure hypercholesterolemia, unspecified; R73.01 Impaired fasting glucose; E55.9 Vitamin D deficiency, unspecified
CPT/HCPCS: 36415; 80053; 80061; 82306; 83036; 84443; 85025

== ENCOUNTER 2025-07-14 14:15 | Outpatient (REF) | payer OTHER, SELFPAY ==
--- NOTE | ~2025-07-14 | MM_ITS ---
EXAMINATION: MM SCREENING DIGITAL BREAST TOMOSYNTHESIS, BILATERAL CLINICAL INFORMATION: Screening. Asymptomatic. COMPARISON: Mammography: Comparison is made with available priors TECHNIQUE: Digital breast mammography with tomosynthesis is performed in both the craniocaudal and mediolateral oblique views along with computer-aided detection (CAD). FINDINGS: The breasts are heterogeneously dense, which may obscure small masses (ACR BI-RADS breast composition Category c). There are no significant masses, abnormal calcifications, or other abnormalities. MM/MM tomosynthesis screening BI IMPRESSION: No mammographic evidence of malignancy. ASSESSMENT: BI-RADS BI-RADS 1 - Negative RECOMMENDATION: Routine annual mammography screening. 1 year F/U This examination should not preclude the clinical evaluation of a suspicious palpable abnormality. This patient's information was entered into a reminder system with a target due date for their next mammogram. Electronically signed by: Blank Lyles DO 07/18/2025 02:55 PM EDT
--- OUTSIDE RECORDS SUMMARY | 2025-07-14 17:11 | XMS_ITS | Clinical Summary ---
Author Organization [facility] Address [address] [place] [address] Phone Care Team Providers Care Weir Fisherman Name Role Phone Ron Cisneros MD Primary Care Provider [phone] Allergies Active Allergy Reactions Criticality Noted Date Comments Citalopram Hydrobromide 06/22/2015 Other reaction(s): vomiting Prochlorperazine Other (See Comments) Low 9 agitation Omeprazole 06/22/2015 Other reaction(s): diarrhea Medications cholecalciferol, vitamin D3, 1,000 unit capsule Take 1 capsule by mouth daily. Active therapeutic multivitamin tablet Take 1 tablet by mouth daily. Active compress.stocking ,knee,reg,med MiscIndications:B ilateral leg edema 30-40 mm of hg . Disp 2 Pairs Bilateral leg edema 2 each 3 2 Active mirtazapine (REMERON) 15 MG tablet TAKE 1 TABLET BY MOUTH EVERY NIGHT AT BEDTIME 90 tablet 3 4 Active busPIRone (BUSPAR) 7.5 MG tabletIndications :Anxiety state TAKE 1 TABLET BY MOUTH EVERY DAY 90 tablet 3 4 Active Active Problems Problem Noted Date Diagnosed Date Diarrhea 05/09/2025 Assessment & Plan (05/09/2025 5:06 PM EDT): She has been experiencing 3 weeks of soft stools following meals. She is afebrile, hemodynamically stable. Physical exam was ultimately benign in the office today. I do have extremely low suspicion for infectious etiology given that her symptoms only occur following meals. Diarrhea is not watery, nonbloody, and mostly just soft. She had no other changes into her lifestyle, no offending medications. Unlikely to be gallbladder related given her history of cholecystectomy as well as absence of abdominal pain. She is due for colonoscopy and with this new onset diarrhea, cannot rule out malignancy, advised patient to call her hooker off in order to schedule an appointment. Will obtain a stool sample for E. coli, ova and parasites, and C. difficile to rule out bacterial infection although low suspicion. Discussed that due to low suspicion of bacterial etiology, she can try loperamide for symptom management. If symptoms continue to persist while on the loperamide, we will likely have to move forward with further imaging to assess. Anxiety disorder 11/18/2019 Hyperlipidemia 11/18/2019 Encounters Date Type Department Care Team Description 05/09/2025 4:20 PM EDT Office Visit [facility] [address] [place] [address] Candida Worthy PA-C Diarrhea, unspecified type (Primary Dx) 05/08/2025 Telephone [facility] [address] [place] [address] Crystal Horan RN Diarrhea from Last 3 Months Immunizations Immunization Administration Dates Next Due Td, unspecified formulation 06/02/2006 Tdap 08/22/2022,07/01/2012 Family History Medical History Relation Comments CABG Father Heart disease Father Prostate cancer Father Heart disease Mother Heart failure Mother Relation Status Comments Brother Alive Daughter Alive Father (Age 80) prostate cance r/ cabg age 65 Mother (Age 78) [place]ase Son Alive Social History Tobacco Use Types Packs/Day Years Used Date Smoking Tobacco: Never Smokeless Tobacco: Never Alcohol Use Standard Drinks/Week Comments No 0 (1 standard drink = 0.6 oz pur e alcohol) Child or Family Care Answer Date Record ed Do you have problems with on e of the following making it difficult for you to work, study, or receive health care? No 09/16/2024 Education Answer Date Recorded Are you interested in help w ith more adult education (for example, completing high school, GED, job training, learning the Syrian language, technical skills, or developing parenting skills)? No 09/16/2024 Are you concerned about learning? Not on file 09/16/2024 No 09/16/2024 Yes 09/16/2024 Food Answer Date Recorded Within the past 6 months we worried whether our food would run out before we got money to buy more. Never True 09/16/2024 Within the past 6 months the food we bought just didn't last and we didn't have enough money to get more. Never True Residential Stability Answer Date Recor ded What is your housing situation today? I have michelle sing 09/16/2024 How many times have you move d in the past 12 months? Zero (I did not move) 09/16/2024 Paying for Meds Answer Date Recorded Do you have trouble paying for medicines? No 09/16/2024 Paying Utility Bills Answer Date Record ed Do you have trouble paying your heating or elect ricity bill? No 09/16/2024 Transportation Answer Date Recorded Has the lack of transportati on kept you from medical appointments or from getting medications? No 09/16/2024 Unemployment Answer Date Recorded Are you currently unemployed or working on a part-time or temporary basis, and looking for work? No 08/04/2022 Digital Access Answer Date Recorded Yes 09/16/2024 Yes 09/16/2024 Do you have reliable internet access at home? Ye s 09/16/2024 Do you have a device (e.g., phone, tablet, computer) with a working camera? No 09/16/2024 Intimate Partner Violence Answer Date R ecorded Denied Basic Needs Not on file 09/16/2024 In the past 12 months have y ou been in a relationship with a person who hurts, threatens, or tries to control you? No 09/16/2024 Worried food would run out Not on file 09/16 In the past 12 months have y ou been in a relationship with a person who hurts, threatens, or tries to control you? No 09/16/2024 Comments No Sex and Gender Information Value Date Recorded Sex Assigned at Not on file Legal Sex Female 10:34 PM EDT Gender Identity Not on file Sexual Orientation Not on file Last Filed Vital Signs Vital Sign Reading Time Taken Comments Blood Pressure 130/72 05/09/2025 4:13 PM EDT Pulse 75 05/09/2025 4:13 PM EDT Temperature 36.3 C (97.4 F) 05/09/2025 4:13 PM EDT Respiratory Rate 21 05/09/2025 4:13 PM EDT Oxygen Saturation 98% 05/09/2025 4:13 PM EDT Inhaled Oxygen Concentration - - Weight 74.8 kg (164 lb 14.4 oz) 05/09/2025 4:13 PM EDT Height 161.8 cm (5' 3.7 ) 05/09/2025 4:13 PM EDT Body Mass Index 28.57 05/09/2025 4:13 PM EDT Plan of Treatment Upcoming Encounters Date Type Department Care Team (Late st Contact Info) Description 09/22/2025 4:00 PM EST Office Visit [facility] Internal Medicine [address] [place] [address] Ron Cisneros MD [address] [place] [address] Health Maintenance Due Date Last Done Comments COLOGUARD 2008 FIT TEST 2008 FOBT 2008 SIGMOIDOSCOPY 2008 VIRTUAL COLONOSCOPY 2008 PNEUMOCOCCAL VACCINES (50+ years) (1 of 1 - PCV) 2013 ZOSTER VACCINES (1 of 2) 2013 COLONOSCOPY 10/03/2024 10/03/2019, 04/02, 04/17/2014 COLORECTAL CANCER SCREENING 10/03/2024 INFLUENZA VACCINE (#1) 2025 COVID-19 VACCINE ( - season) 2025 DEPRESSION SCREENING 09/16/2025 09/16/2024 PAP SMEAR 01/13/2026 01/13/2023, 03/02, 03/18/2013 MAMMOGRAM 07/08/2026 07/08/2024, 0903/2023, 07/01/2022, Additional history exists SCREENING FOR DIABETES 08/27/2027 , 08/01/2023, 10/11/2021, Additional history exists LIPID PANEL 08/27/2029 08/27/2024, 08/03, 08/27/2024, Additional history exists Adult Td,Tdap Booster 08/22/2032 08/22/2022 , 07/01/2012, 06/02/2006 RSV VACCINE (1 - 1-dose 75+ series) 2038 HEPATITIS C SCREENING Completed 11/23/2019 HIV ONE-TIME SCREENING (18-65 YEARS) Completed 11/23/2019 SMOKING STATUS SCREENING (Once After 26 Yrs) Completed 05/09/2025 HEPATITIS A VACCINES Aged Out No long er eligible based on patient's age to complete this topic HIB VACCINES Aged Out No longer eligi ble based on patient's age to complete this topic MENINGOCOCCAL VACCINES (ACWY) Aged Out No longer eligible based on patient's age to complete this topic MENINGOCOCCAL VACCINES (B) Aged Out N o longer eligible based on patient's age to complete this topic Medical Devices Not on file Procedures Procedure Name Priority Date/Time Associated Diagnosis Comments OUTSIDE HDL Routine 08/27/2024 MAMMOGRAPHY Routine 07/08/2024 2:57 PM EDT OUTSIDE GLUCOSE FASTING Routine 08/01/2023 PAP TEST Routine 01/13/2023 OUTSIDE HIV Routine 11/23/2019 HEPATITIS C ANTIBODY, QUALITATIVE Routine 11/23/2019 COLONOSCOPY FOR RESULT ENTRY ONLY Routine 10/03/2019 from Last 3 Months or Most Recently Relevant to Health Maintenance Results * Outside HDL (08/27/2024) HDL - External 50 40 - 80 mg/dL EXTERNAL NON-INTERFACED REF LAB us Historical Provider LAB BLOOD ORDERABLES Diane jenkins Result EXTERNAL NON-INTERFACED REF LAB * MAMMOGRAPHY FOR RESULT ENTRY ONLY (07/08/2024 2:57 PM EDT) us Ron Cisneros MD HEALTH MAINTENANCE Edited Res ult - Final * Outside Glucose,Fasting (08/01/2023) Glucose, fasting - External 89 65 - 99 mg/dL Result [facility] Historical Provider LAB BLOOD ORDERABLES Diane l Result * Pap Test (01/13/2023) Result [facility] Ron Cisneros MD CYTOLOGY ORDERABLES Edited Re sult - Final * OUTSIDE HIV TEST (11/23/2019) HIV - External Neg Result [facility] Provider LAB BLOOD ORDERABLES Diane l Result * Hepatitis C antibody, qualitative (11/23/2019) Result [facility] Ron Cisneros MD LAB BLOOD ORDERABLES Edited R esult - Final * HM COLONOSCOPY FOR RESULT ENTRY ONLY (10/03/2019) Result [facility] Historical [facility] MAINTENANCE Final Result from Last 3 Months or Most Recently Relevant to Health Maintenance Insurance [employer] [place] [address] [employer] Member Subscriber Plan / Payer (Ef fective 2019-Present) Name:Daisy Garrison Relation to Subscriber:Self Name:Daisy Garrison Payer ID:[id number] (NAIC) Type:PPO Address: [place] [phone] [employer] BENEFITS ADMINISTRATORS [employer] Member Subscriber Plan / Payer (Ef fective 2019-Present) Name:Daisy Garrison Relation to Subscriber:Self Name:Daisy Garrison Payer ID:[id number] (NA) Type:PPO Address: [place] [phone] [employer] [facility] ADMINISTRATORS [employer] [facility] [address] [address] [place] [address] [employer]ITS [employer]MIN[employer]AT[employer] Care Teams Weir Fisherman Relationship Specialty Start Date End Date Ron Cisneros MD [address] [place] [phone] [email or web address] PCP - General 11/05/17 Additional Source Comments The information contained in this document represents components of the legal health record. It is not the complete legal health record.[facility]
--- OUTSIDE RECORDS SUMMARY | 2025-07-14 17:11 | XMS_ITS | Patient Health Record ---
Author Organization [facility] Address [address] [place] [address] Care Team Providers Care Retail Field Merchandiser Name Role Phone Ron Cisneros MD Primary Care Provider Guanaco Jacob Unavailable [phone] Reason For Referral No Information Medications Medication SIG (Take, Route, Fr equency, Duration) Notes Start Date End Date Status Vitamin D3 1000 UNIT 1 tablet Orally Once a day Active Mirtazapine 15 MG 1 tablet at bedtime Orally Once a day Active busPIRone HCl 7.5 MG 1 tablet Orally once a day Active Immunizations Vaccine Route Administration Date Status Comme nts Influenza Unknown 07/06/2019 Refused Problems Problem Type SNOMED Code ICD Code Onset Dates Problem Status W/U Status Risk Notes Problem 633048065 Encounter for screening for malignant neoplasm of colon (Z12.11) Active confirmed Problem 362804457 History of adenomatous polyp of colon (Z86.010) Active confirmed Problem 713283508610643 Preprocedural examination (Z01.818) Active confirmed Encounters Encounter Location Date Provider Diagnosis [facility] [address] [place] [address] 11/17/2024 Guanaco Black Plan Of Treatment Future Test Test Name Order Date COLONOSCOPY 01/25/2014 COLONOSCOPY 07/06/2019 Next Appt Details Provider Name:Guanaco Black , 09/20/2025 02:40:00 PM, [address] [place] [address], [address], [place], [address], Insurance Providers Payer Name Payer Address Payer Phone Subscriber Number Group Number Insured Name Patient Relationship to Insured Coverage Start Date Coverage End Date [employer] [address] [address] [place] [address] [id number] MAMADOU WALTERS Self - patient is the insured Medical (General) History Medical History History ICD Code 10/29/2007--she was having n ausea, anorexia, and weight loss ---EGD--normal--no celiac disease, no H.pylori; small HH--her symptoms ultimately resolved and have been stable Anxiety/depression Denies NC,DM,CVA,Lung disease,renal dise ase Colonoscopy in 04/2014-1 small tubular ad enoma removed Surgical History Surgery Date(Month/Year) Uterine ablation 11/2013
== END 2025-07-14 14:16 | disposition home or self-care (01) ==
LOC: HO.MAMMO 14:15
PROVIDERS: PCP Internal Medicine; Visit Provider Internal Medicine
DX: Z12.31 Encounter for screening mammogram for malignant neoplasm of breast (principal)
CPT/HCPCS: 77063; 77067

== ENCOUNTER → 2025-07-14 14:30 | Outpatient (BNV) | payer OTHER, SELFPAY | PROVIDERS: PCP Internal Medicine; Visit Provider Internal Medicine | DX: Z12.31 Encounter for screening mammogram for malignant neoplasm of breast (principal) | CPT/HCPCS: 77063; 77067 ==

== ENCOUNTER 2025-09-04 14:51 | Outpatient (AMB) | payer OTHER, SELFPAY ==
--- NOTE | 2025-09-04 15:31 | A.OFFVIS_ITS ---
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 No complaints. Last Pap/HPV was negative in 02/23 Last Mammogram was BI-RADS 1 07/27 Last Colonoscopy was done in 10/20 can the recommendation was to repeat in 5 years [facility] Medical History Acid reflux Depression Anxiety Surgical History History of cholecystectomy History of local excision of skin lesion (11/04/22) History of esophagogastroduodenoscopy History of endometrial ablation Hx of dilation and curettage Hx of colonoscopy Social History Household Members: Spouse Housing: House Alcohol intake: never Patient Tobacco Use Status: Never used Tobacco Current occupational status: employed Current occupation: Food services at [employer] Sexual orientation: Straight/Heterosexual Gender identity: Female Female Reproductive History Menstrual Age of Menarche: 13 Date of last pap smear: 02/04/24 Date of Mammogram: 07/14/25 Review of Systems Const All systems reviewed & are unremarkable except as noted in HPI and below Card Reports as per HPI Resp Reports as per HPI GI Reports as per HPI and Reports no additional complaints Reports as per HPI Physical Exam Vital Signs: Last Vital Signs BP 126/80 09/04/25 15:33 BMI result Body Mass Index 27.8 Const General: cooperative, healthy appearing and comfortable Chest Chest palpation & inspection: normal inspection of the chest and normal palpation of entire chest wall Breast/axilla inspection: normal inspection of the breasts and normal inspection of the axillae Breast/axilla palpation: normal palpation of the breasts, normal palpation of the axillae and no axillary lymphadenopathy Resp Effort & Inspection: normal respiratory effort Auscultation: clear to auscultation bilaterally Percussion: percussion normal Cardio Palpation: normal PMI Rate: regular rate Rhythm: regular rhythm Heart sounds: no murmurs and no rubs Peripheral pulses: Peripheral pulses 2+ throughout GI Inspection: Yes normal to inspection Palpation (GI): Soft to palpation, nontender, no guarding, not rigid and No hepatosplenomegaly present Percussion: Yes normal to percussion Auscultation: normal bowel sounds Rectal Exam - Female: deferred General: Yes bladder normal to palpation External Female Exam: No lesion Speculum Exam - Vagina: normal appearance of the vagina, normal palpation, normal vaginal discharge and not erythematous Speculum Exam - Cervix: normal appearance of the cervix and normal palpation Bimanual exam- vagina & uterus: normal bimanual exam, normal palpation, uterine size normal, bladder normal to palpation, consistency normal and normal palpation Bimanual Exam- Adnexa, other: normal adnexae, no masses and no tenderness Assessment & Plan Assessment & Plan (1) Well woman exam: Code(s): Z01.419 - Encounter for gynecological examination (general) (routine) without abnormal findings Category: Medical Plan: Co testing not indicated this. Counseled the patient about the recommended dietary allowance of 1200 mg of Calcium & 600 IU of vitamin D. Instructions given the patient to schedule next screening Mammogram in 07/28. The patient is in the process of scheduling an appointment with her GI for screening colonoscopy . The patient was instructed to perform monthly self-breast exams and schedule annual exam in a year. All questions answered and the patient verbalized understanding. Coding Level of Care Code Est Pt Prev Care 40-64y(74877) Diagnoses Well woman exam Z01.419
[2025-09-04 15:33] VITALS: BP 126/80; BMI 27.8
--- OUTSIDE RECORDS SUMMARY | 2025-09-04 16:18 | XMS_ITS | Patient Health Record ---
Author Organization [facility] Address [address] [place] [address] Care Team Providers Care Stitch Bonding Machine Operator Name Role Phone Ron Cisneros MD Primary Care Provider Guanaco Jacob Unavailable [phone] Reason For Referral No Information Medications Medication [...] Problem Status W/U Status Risk Notes Problem Screening for malignant neoplasm of colon (307530718) Encounter for screening for malignant neoplasm of colon (Z12.11) Active confirmed Problem History of adenomatous polyp of colon (925289917) History of adenomatous polyp of colon (Z86.010) Active confirmed Problem Preprocedural examination (043462385802161) Preprocedural examination (Z01.818) Active confirmed Encounters Encounter Location Date Provider Diagnosis [facility] [address] [place] [address] 11/17/2024 Guanaco Black Plan Of Treatment Future Test Test Name Order Date COLONOSCOPY 01/25/2014 COLONOSCOPY 07/06/2019 Next Appt Details Provider Name:Guanaco Black , 09/20/2025 02:40:00 PM, [address], [address], [place], [address], Insurance Providers Payer Name Payer Address Payer Phone Subscriber Number Group Number Insured Name Patient Relationship to Insured Coverage Start Date Coverage End Date [employer] [place] [address] [address] [place] [phone] [id number] MAMADOU WALTERS Self - patient is the insured Medical (General) History Medical History History ICD Code 10/29/2007--she was having n ausea, anorexia, and weight loss ---EGD--normal--no celiac disease, no H.pylori; small HH--her symptoms ultimately resolved and have been stable Anxiety/depression Denies SD,DM,CVA,Lung disease,renal dise ase Colonoscopy in 04/2014-1 small tubular ad enoma removed Surgical History Surgery Date(Month/Year) Uterine ablation 11/2013
--- OUTSIDE RECORDS SUMMARY | 2025-09-04 16:18 | XMS_ITS | Clinical Summary ---
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 Will [...] Encounters Date Type Department Care Team Description 07/19/2025 Orders Only [facility] [address] [facility] [address] Provider, MD Demetrius from Last 3 Months Immunizations Immunization Administration [...] high school, GED, job training, learning the [place] language, technical skills, or developing parenting skills)? [...] your housing situation today? I have michelle collins 09/16/2024 How many times have you move [...] Description 09/22/2025 4:00 PM EST Office Visit [facility] [address] [place] [address] Ron Cisneros MD [address] [place] [address] [email or web address] Maintenance Due Date Last Done Comments [...] PAP SMEAR 01/13/2026 01/13/2023, 03/02, 03/18/2013 MAMMOGRAM 07/14/2027 07/14/2025, 04/2024, 07/07/2023, Additional history exists SCREENING FOR DIABETES 08/27/2027 [...] Procedure Name Priority Date/Time Associated Diagnosis Comments MAMMOGRAPHY Routine 07/14/2025 3:11 PM EDT OUTSIDE HDL Routine 08/27/2024 OUTSIDE GLUCOSE FASTING Routine 08/01/2023 PAP TEST Routine 01/13/2023 OUTSIDE HIV Routine 11/23/2019 HEPATITIS C ANTIBODY, QUALITATIVE Routine 11/23/2019 COLONOSCOPY FOR RESULT ENTRY ONLY Routine 10/03/2019 from Last 3 Months or Most Recently Relevant to Health Maintenance Results * MAMMOGRAPHY FOR RESULT ENTRY ONLY (07/14/2025 3:11 PM EDT) Historical Provider HEALTH MAINTENANCE Final Result * Outside HDL (08/27/2024) HDL - External 50 40 - 80 mg/dL EXTERNAL NON-INTERFACED REF LAB Historical Provider LAB BLOOD ORDERABLES Diane l Result EXTERNAL NON-INTERFACED REF LAB * Outside Glucose,Fasting (08/01/2023) Glucose, fasting - External 89 65 - 99 mg/dL Result [facility] Historical Provider LAB BLOOD ORDERABLES Diane l Result * Pap Test (01/13/2023) us Ron Cisneros MD CYTOLOGY ORDERABLES Edited Re sult - Final * OUTSIDE HIV TEST (11/23/2019) HIV - External Neg Result [facility] Historical Provider LAB BLOOD ORDERABLES Diane l Result * Hepatitis C antibody, qualitative (11/23/2019) Ron Cisneros MD LAB BLOOD BKR ORDERABLES Edit ed Result - Final * HM COLONOSCOPY FOR RESULT ENTRY ONLY (10/03/2019) Historical Provider HEALTH MAINTENANCE Final Result from Last 3 Months or Most Recently Relevant to Health Maintenance Insurance [employer] Member Subscriber Plan / Payer (Ef fective 2019-Present) Name:Daisy Garrison Relation to Subscriber:Self Name:Daisy Garrison Payer ID:[id number] (NAIC) Type:PPO Address: [address] [employer] Member Subscriber Plan / Payer (Ef fective 2019-Present) Name:Daisy Garrison Relation to Subscriber:Self Name:Daisy Garrison Payer ID:[id number] (NAIC) Type:PPO Address: [place] [phone] [employer] Member Subscriber Plan / Payer (Ef fective 2019-Present) Name:Daisy Garrison Relation to Subscriber:Self Name:Daisy Garrison Payer ID:[id number] (NAIC) Type:PPO Address: [address] [employer] Member Subscriber Plan / Payer (Ef fective 2019-Present) Name:Daisy Garrison Relation to Subscriber:Self Name:Daisy Garrison Payer ID:[id number] (NAIC) Type:PPO Address: [address] [employer] Member Subscriber Plan / Payer (Ef fective 2019-Present) Name:Daisy Garrison Relation to Subscriber:Self Name:Daisy Garrison Payer ID:[id number] (NAIC) Type:PPO Address: [place] [phone] [employer] Member Subscriber Plan / Payer (Ef fective 2019-Present) Name:Daisy Garrison Relation to Subscriber:Self Name:Daisy Garrison Payer ID:[id number] (NAIC) Type:PPO Address: [address] [employer] Member Subscriber Plan / Payer (Ef fective 2019-Present) Name:Daisy Garrison Relation to Subscriber:Self Name:Daisy Garrison Payer ID:[id number] (NAIC) Type:PPO Address: [place] [phone] [employer] Care Teams Lead Radiation Therapist Relationship Specialty Start Date End Date Ron Cisneros MD [address] [place] [address] [email or web address] PCP - General 11/05/17 Additional Source Comments The information contained in this document represents components of the legal health record. It is not the complete legal health record.[facility]
== END 2025-09-04 15:55 | disposition home or self-care (01) ==
LOC: HO.HWS 14:52
PROVIDERS: PCP Internal Medicine; Visit Provider Obstetrics & Gynecology
DX: Z01.419 Encounter for gynecological examination (general) (routine) without abnormal findings (principal)
CPT/HCPCS: 99396; 99459